=== PATIENT | female | born 1950 | race Caucasian/White ===

== ENCOUNTER → 2017-01-11 | Outpatient (CLI) | payer MEDICARE ==
[2017-01-11 11:09] LABS: HEMOGLOBIN 12.6 gm/dl (12.3-15.3); RED BLOOD COUNT 4.06 M/UL (4.00-5.10); WHITE BLOOD COUNT 4.8 K/UL (4.5-11.0)
[2017-01-11 11:40] LABS: BUN/CREATININE RATIO 20 (0-10)
== END ==
LOC: LAB 10:25
PROVIDERS: Physician Assistant
DX: E03.9 Hypothyroidism, unspecified (principal); E55.9 Vitamin D deficiency, unspecified; D64.9 Anemia, unspecified; I10 Essential (primary) hypertension
CPT/HCPCS: 36415; 80053; 80061; 84443; 85025

== ENCOUNTER → 2017-02-16 | Outpatient (CLI) | payer MEDICARE ==
[2017-02-16 11:51] LABS: HEMOGLOBIN 12.7 gm/dl (12.3-15.3); RED BLOOD COUNT 4.07 M/UL (4.00-5.10); WHITE BLOOD COUNT 5.2 K/UL (4.5-11.0)
[2017-02-16 12:14] LABS: BUN/CREATININE RATIO 13 (0-10)
== END ==
LOC: LAB 10:36
PROVIDERS: Physician Assistant
DX: Z12.11 Encounter for screening for malignant neoplasm of colon (principal); E78.5 Hyperlipidemia, unspecified; I10 Essential (primary) hypertension; E03.9 Hypothyroidism, unspecified
CPT/HCPCS: 36415; 80053; 80061; 84443; 85025

== ENCOUNTER → 2017-02-18 | Outpatient (CLI) | payer MEDICARE | LOC: LAB 19:20 | DX: Z12.11 Encounter for screening for malignant neoplasm of colon (principal); E78.5 Hyperlipidemia, unspecified; I10 Essential (primary) hypertension; E03.9 Hypothyroidism, unspecified | CPT/HCPCS: 82270 ==

== ENCOUNTER → 2020-10-14 | Outpatient (CLI) | payer MEDICARE, OTHER ==
[~2020-10-14] MED LIST: K-DUR TAB 20 M20 MEQ PO; SKELAXIN800 MG PO
[2020-10-14 09:34] LABS: BUN/CREATININE RATIO 25 (0-10)
== END ==
LOC: LAB 08:30
PROVIDERS: Nurse Practitioner Family
DX: R94.4 Abnormal results of kidney function studies (principal)
CPT/HCPCS: 36415; 80053

== ENCOUNTER 2020-11-03 20:16 | Emergency (ER) | payer MEDICARE, OTHER ==
[~2020-11-03 20:16] MED LIST changes: -K-DUR TAB 20 M20 MEQ PO
[2020-11-03 20:55] LABS: RED BLOOD COUNT 4.03 M/UL (4.00-5.10); WHITE BLOOD COUNT 8.3 K/UL (4.5-11.0)
[2020-11-03 21:17] LABS: BUN/CREATININE RATIO 16 (0-10)
[2020-11-03] MEDS ORDERED: K-DUR TAB 20 M20 MEQ PO (22:01)
== END 2020-11-03 22:28 | disposition home or self-care (01) ==
LOC: ER1 20:16
PROVIDERS: Physician Assistant
DX: I10 Essential (primary) hypertension (principal); E87.6 Hypokalemia; R73.9 Hyperglycemia, unspecified; R60.0 Localized edema; E03.9 Hypothyroidism, unspecified; Z79.899 Other long term (current) drug therapy; Z79.82 Long term (current) use of aspirin
CPT/HCPCS: 71045; 80048; 82550; 82553; 83874; 84484; 85025; 93005; 99284

== ENCOUNTER → 2021-05-12 | Outpatient (CLI) | payer MEDICARE ==
[~2021-05-12] MED LIST changes: +K-DUR TAB 20 M20 MEQ PO
== END ==
LOC: MAMO 14:07
DX: Z12.31 Encounter for screening mammogram for malignant neoplasm of breast (principal)
CPT/HCPCS: 77063; 77067

== ENCOUNTER 2021-06-07 14:40 | Emergency (ER) | payer MEDICARE | END 2021-06-07 15:10 | disposition home or self-care (01) | LOC: ER1 14:40 | DX: Z20.822 Contact with and (suspected) exposure to COVID-19 (principal); E78.5 Hyperlipidemia, unspecified; I10 Essential (primary) hypertension | CPT/HCPCS: 99283; U0003 ==

== ENCOUNTER → 2021-07-23 | Outpatient (CLI) | payer MEDICARE | LOC: US 08:22 | PROVIDERS: Internal Medicine Nephrology | DX: N18.32 Chronic kidney disease, stage 3b (principal); E78.5 Hyperlipidemia, unspecified; E03.9 Hypothyroidism, unspecified; N28.1 Cyst of kidney, acquired | CPT/HCPCS: 36415; 80053; 82550; 82570; 83970; 84100; 84156; 84443 ==

== ENCOUNTER → 2022-03-25 | Outpatient (CLI) | payer MEDICARE | LOC: EXRD 09:18 | DX: N28.1 Cyst of kidney, acquired (principal) | CPT/HCPCS: 76775 ==